=== PATIENT | female | born 1990 | race Caucasian/White ===

== ENCOUNTER 2023-12-30 04:56 | Emergency (ER) | payer MEDICAID ==
[2023-12-30] MEDS: Sodium Chloride 0.9% 1,000 ML IV SCH (06:08)
[2023-12-30] MEDS: Ketorolac 30 MG/ML SDV IVPUSH ONE (06:09)
[2023-12-30 06:10] LABS: BASOPHILS ABSOLUTE AUTO 0.03 K/uL (0.00-0.10); BASOPHILS PERCENT AUTO 0.5 % (0.1-1.3); HEMATOCRIT 37.9 % (34.3-46.0); HEMOGLOBIN 13.5 g/dL (11.2-15.5); IMMATURE GRAN ABSOLUTE AUTO 0.03 K/uL (0.00-0.23); IMMATURE GRAN PERCENT AUTO 0.5 % (0.0-0.7); LYMPHOCYTES ABSOLUTE AUTO 1.87 K/uL (0.8-3.3); LYMPHOCYTES PERCENT AUTO 32.1 % (11.4-47.7); MEAN CORPUSCULAR HEMOGLOBIN 30.2 pg (31.6-35.5); MEAN CORPUSCULAR HGB CONC 35.6 g/dL (31.6-35.5); MEAN CORPUSCULAR VOLUME 84.8 fL (81.4-99.0); MONOCYTES ABSOLUTE AUTO 0.33 K/uL (0.20-0.90); MONOCYTES PERCENT AUTO 5.7 % (3.3-12.6); NEUTROPHILS ABSOLUTE AUTO 3.57 K/uL (1.0-7.6); NEUTROPHILS PERCENT AUTO 61.2 % (40.0-78.1); PLATELET COUNT,PLT 299 K/uL (130-375); RED BLOOD CELL COUNT 4.47 M/uL (3.77-5.24); WHITE BLOOD CELL COUNT,WBC 5.8 K/uL (3.2-11.0)
[2023-12-30 06:24] LABS: A/G RATIO 1.2 (1.2-2.2); ALANINE AMINOTRANSFERASE,ALT 20 U/L (12-78); ALBUMIN 3.8 g/dL (3.4-5.0); ALKALINE PHOSPHATASE 93 U/L (46-116); ANION GAP 7.5 mmol/L (5.0-14.0); ASPARTATE AMNIOTRANSFERASE,AST 9 U/L (15-37); BILIRUBIN TOTAL 0.3 mg/dL (0.2-1.0); BLOOD UREA NITROGEN,BUN 14 mg/dL (7-18); CALCIUM 9.2 mg/dL (8.5-10.1); CARBON DIOXIDE,CO2 29 mmol/L (21-32); CHLORIDE,CL 106 mmol/L (100-108); EST CRCL DRUG DOSING (CG) 72.68 mL/min; ESTIMATED GFR 77 mL/min (>60); GLUCOSE RANDOM 95 mg/dL (74-106); POTASSIUM,K 3.7 mmol/L (3.6-5.2); PROTEIN TOTAL,TP 6.9 g/dL (6.4-8.2); SODIUM,NA 142 mmol/L (140-148)
[2023-12-30 06:25] LABS: C-REACTIVE PROTEIN < 0.50 mg/dL (<0.50)
[2023-12-30] MEDS: LORazepam 2 MG/ML SDV IVPUSH ONE (06:27)
[2023-12-30] MEDS: Iopamidol 612 MG/ML 100 ML Bottle IV ONE (06:35)
[2023-12-30] MEDS: Sodium Chloride 0.9% 80 ML IV SCH (06:35)
[2023-12-30] MEDS: Acetaminophen/HYDROcodone 325-5 MG Tab PO ONE (07:52)
== END 2023-12-30 08:00 | disposition home or self-care (01) ==
LOC: JP.ED 04:56 → MERGE 04:56 → JP.ED 08:00
DX: G89.29 Other chronic pain (principal); R10.11 Right upper quadrant pain; R10.12 Left upper quadrant pain; Z88.0 Allergy status to penicillin; Z88.1 Allergy status to other antibiotic agents; Z91.040 Latex allergy status; Z86.16 Personal history of COVID-19; Z79.899 Other long term (current) drug therapy; Z90.49 Acquired absence of other specified parts of digestive tract; Z90.710 Acquired absence of both cervix and uterus
CPT/HCPCS: 36415; 74177; 80053; 83605; 85025; 86140; 96374; 96375; 99284; A9270; J1885; J2060; J3490; J7030; Q9967